=== PATIENT | male | born 1960 | race Caucasian/White ===

== ENCOUNTER → 2016-10-16 | Outpatient (CLI) | payer OTHER ==
[~2016-10-16] MED LIST: LIPITOR80 MG PO
== END ==
LOC: HEART 5 08:13
DX: R06.00 Dyspnea, unspecified (principal); R00.2 Palpitations
CPT/HCPCS: 93306

== ENCOUNTER → 2020-12-31 | Outpatient (CLI) | payer OTHER | LOC: HEART 5 09:29 | DX: I50.22 Chronic systolic (congestive) heart failure (principal); R06.02 Shortness of breath | CPT/HCPCS: 93306 ==

== ENCOUNTER → 2021-02-28 | Outpatient (CLI) | payer OTHER ==
[~2021-02-28] MED LIST changes: +ASPIRIN CHEWABL81 MG PO; +BUMETANIDE2 MG PO; +CLARITIN10 M2 PO; +CLARITIN10 MG PO; +CLINDAMYCIN HC300 MG PO; +DIGOX125 MCG PO; +FENOFIBRATE160 MG PO; +FLONASE 0.05% N16 GM; +HYDROCODON-ACE1 EAC4 PO; +K-TAB ER20 MEQ PO; +LEVOFLOXACIN500 MG PO; +LOPRESSOR50 MG PO; +NEURONTIN800 MG PO; +NIACIN ER500 MG PO; +NITROSTAT0.4 MG SL; +NOVOLOG FL100 UNIT/1 INJ; +PANTOPRAZOLE SO20 MG PO; +QVAR REDIHALE10.6 G1 INH; +SYNJARDY XR 121 EACH PO; +TRESIBA FL100 UNIT/1 SQ; +TRULICITY0.75 MG/0. SQ; +VASCEPA1 GM PO; +ZANAFLEX2 MG PO; +ZESTRIL5 MG PO
[2021-02-28 09:52] LABS: HEMOGLOBIN 15.3 gm/dl (14.0-17.5); RED BLOOD COUNT 5.44 M/UL (4.20-5.50); WHITE BLOOD COUNT 7.3 K/UL (4.5-11.0)
[2021-03-01 09:14] LABS: CREATININE, URINE 87.3 mg/dL (Not Estab.)
== END ==
LOC: LAB 08:12
PROVIDERS: Internal Medicine Cardiovascular Disease; Internal Medicine Nephrology
DX: R94.30 Abnormal result of cardiovascular function study, unspecified (principal); I12.9 Hypertensive chronic kidney disease with stage 1 through stage 4 chronic kidney disease, or unspecified chronic kidney disease; I25.5 Ischemic cardiomyopathy; R06.02 Shortness of breath; N18.9 Chronic kidney disease, unspecified; E78.5 Hyperlipidemia, unspecified; E11.22 Type 2 diabetes mellitus with diabetic chronic kidney disease
CPT/HCPCS: 36415; 71046; 80053; 80061; 81001; 82043; 82570; 82607; 84153; 84156; 84439; 84443; 85025

== ENCOUNTER 2021-03-04 08:00 | Outpatient (CLI) | payer OTHER ==
[~2021-03-04] VITALS: Ht 185.4 cm; Wt 111.1 kg
[~2021-03-04 08:00] MED LIST changes: -ASPIRIN CHEWABL81 MG PO; -BUMETANIDE2 MG PO; -CLARITIN10 M2 PO; -CLARITIN10 MG PO; -CLINDAMYCIN HC300 MG PO; -DIGOX125 MCG PO; -FENOFIBRATE160 MG PO; -FLONASE 0.05% N16 GM; -HYDROCODON-ACE1 EAC4 PO; -K-TAB ER20 MEQ PO; -LEVOFLOXACIN500 MG PO; -LOPRESSOR50 MG PO; -NEURONTIN800 MG PO; -NIACIN ER500 MG PO; -NITROSTAT0.4 MG SL; -NOVOLOG FL100 UNIT/1 INJ; -PANTOPRAZOLE SO20 MG PO; -QVAR REDIHALE10.6 G1 INH; -SYNJARDY XR 121 EACH PO; -TRESIBA FL100 UNIT/1 SQ; -TRULICITY0.75 MG/0. SQ; -VASCEPA1 GM PO; -ZANAFLEX2 MG PO; -ZESTRIL5 MG PO
[2021-03-04] MEDS ORDERED: ASPIRIN CHEWABL81 MG PO (08:50)
[2021-03-04] MEDS ORDERED: BUMETANIDE2 MG PO (08:51)
[2021-03-04] MEDS ORDERED: DIGOX125 MCG PO (08:52)
[2021-03-04] MEDS ORDERED: CLARITIN10 MG PO (08:52)
[2021-03-04] MEDS ORDERED: FENOFIBRATE160 MG PO (08:52)
[2021-03-04] MEDS ORDERED: FLONASE 0.05% N16 GM (08:53)
[2021-03-04] MEDS ORDERED: NEURONTIN800 MG PO (08:54)
[2021-03-04] MEDS ORDERED: ZESTRIL5 MG PO (08:54)
[2021-03-04] MEDS ORDERED: VASCEPA1 GM PO (08:54)
[2021-03-04] MEDS ORDERED: LOPRESSOR50 MG PO (08:55)
[2021-03-04] MEDS ORDERED: CLARITIN10 M2 PO (08:55)
[2021-03-04] MEDS ORDERED: NITROSTAT0.4 MG SL (08:56)
[2021-03-04] MEDS ORDERED: NIACIN ER500 MG PO (08:56)
[2021-03-04] MEDS ORDERED: NOVOLOG FL100 UNIT/1 INJ (08:57)
[2021-03-04] MEDS ORDERED: PANTOPRAZOLE SO20 MG PO (08:57)
[2021-03-04] MEDS ORDERED: SYNJARDY XR 121 EACH PO (08:58)
[2021-03-04] MEDS ORDERED: QVAR REDIHALE10.6 G1 INH (08:58)
[2021-03-04] MEDS ORDERED: K-TAB ER20 MEQ PO (08:58)
[2021-03-04] MEDS ORDERED: TRESIBA FL100 UNIT/1 SQ (08:59)
[2021-03-04] MEDS ORDERED: ZANAFLEX2 MG PO (08:59)
[2021-03-04] MEDS ORDERED: TRULICITY0.75 MG/0. SQ (09:00)
[2021-03-04] MEDS ORDERED: HYDROCODON-ACE1 EAC4 PO (13:07)
[2021-03-04] MEDS ORDERED: LEVOFLOXACIN500 MG PO (13:07)
[2021-03-04] MEDS ORDERED: CLINDAMYCIN HC300 MG PO (13:07)
== END 2021-03-05 10:23 | disposition home or self-care (01) ==
LOC: CATH 08:00 → PROG CARE 13:20 → CATH 03-05 10:23
DX: I11.0 Hypertensive heart disease with heart failure (principal); I50.22 Chronic systolic (congestive) heart failure; I25.5 Ischemic cardiomyopathy; I25.10 Atherosclerotic heart disease of native coronary artery without angina pectoris; I44.7 Left bundle-branch block, unspecified; I25.2 Old myocardial infarction; E78.5 Hyperlipidemia, unspecified; E11.40 Type 2 diabetes mellitus with diabetic neuropathy, unspecified; E78.1 Pure hyperglyceridemia; K21.9 Gastro-esophageal reflux disease without esophagitis; E78.00 Pure hypercholesterolemia, unspecified; J42 Unspecified chronic bronchitis; Z79.82 Long term (current) use of aspirin; Z79.4 Long term (current) use of insulin; Z79.899 Other long term (current) drug therapy; Z20.822 Contact with and (suspected) exposure to COVID-19; Z95.810 Presence of automatic (implantable) cardiac defibrillator; Z95.5 Presence of coronary angioplasty implant and graft; Z87.891 Personal history of nicotine dependence
CPT/HCPCS: 33224; 71045; 82962; 93005; 93641; 99152; 99153; C1721; C1769; C1898; C1900; J1644; J2250; J3010; J3370; J7040; J7050; J7070; Q9965